=== PATIENT | female | born 1985 | race American Indian/Alaskan Native ===

== ENCOUNTER 2016-08-17 18:03 | Emergency (ER) | payer SELFPAY ==
[2016-08-17 18:49] VITALS: BP 142/99
[2016-08-17 21:13] LABS: Basophils % (Auto) 0.8 % (0.0-1.8); Eosinophils % (Auto) 1.5 % (0.0-4.3); Hemoglobin 12.2 gm/dl (10.1-14.3); Mean Corpuscular HGB Conc 34 % (30-34); Mean Corpuscular Hemoglobin 32 pg (28-32); Mean Corpuscular Volume 94 fl (79-97); Platelet Count 265 K/mm3 (140-440); Red Blood Count 3.84 M/mm3 (3.65-5.03); Red Cell Distribution Width 12.9 % (13.2-15.2); White Blood Count 7.3 K/mm3 (4.5-11.0)
[2016-08-17 21:29] LABS: Bilirubin,Urine NEG (Negative); Blood,Urine NEG (Negative); Ketones,Urine TR mg/dL (Negative); Leukocyte Esterase,Urine NEG (Negative); Mucus,Urine 2+ /HPF; Nitrite,Urine NEG (Negative); Protein,Urine <15 mg/dL mg/dL (Negative); WBC,Urine < 1.0 /HPF (0.0-6.0)
--- NOTE | 2016-08-19 20:27 | ED Elopement Review ---
ED Pt Elopement review - Results review Lab results: Laboratory Tests 08/17/16 08/17/16 08/17/16 20:48 20:48 20:48 WBC 7.3 RBC 3.84 Hgb 12.2 Hct 36.0 MCV 94 MCH 32 MCHC 34 RDW 12.9 L Plt Count 265 Lymph % (Auto) 42.2 H [place] % (Auto) 7.5 H Eos % (Auto) 1.5 Baso % (Auto) 0.8 Lymph # 3.1 [place] # 0.6 Eos # 0.1 Baso # 0.1 Seg Neutrophils % 48.0 Seg Neutrophils # 3.5 HCG, Qual Positive HCG, Quant 221.4 H Urine Color Urine Turbidity Urine pH Ur Specific [place] Urine Protein Urine Glucose (UA) Urine Ketones Urine Blood Urine Nitrite Urine Bilirubin Urine Urobilinogen Ur Leukocyte Esterase Urine WBC (Auto) Urine RBC (Auto) U Epithel Cells (Auto) Urine Mucus Urine HCG, Qual Blood Type Antibody Screen 08/17/16 08/17/16 20:50 21:00 WBC RBC Hgb Hct MCV MCH MCHC RDW Plt Count Lymph % (Auto) [place] % (Auto) Eos % (Auto) Baso % (Auto) Lymph # [place] # Eos # Baso # Seg Neutrophils % Seg Neutrophils # HCG, Qual HCG, Quant Urine Color Yellow Urine Turbidity Clear Urine pH 8.0 H Ur Specific [place] 1.026 Urine Protein <15 mg/dl Urine Glucose (UA) Neg Urine Ketones Tr Urine Blood Neg Urine Nitrite Neg Urine Bilirubin Neg Urine Urobilinogen 2.0 Ur Leukocyte Esterase Neg Urine WBC (Auto) < 1.0 Urine RBC (Auto) 8.0 U Epithel Cells (Auto) < 1.0 Urine Mucus 2+ Urine HCG, Qual Positive A Blood Type A POSITIVE Antibody Screen Negative - Call Back decision Pt Call Back Decision: Pt to F/U with PMD (patient needs to follow up with her primary care provider she has a positive test and reports vaginal bleeding. Still having vaginal bleeding and abdominal pain she needs to return to the emergency room for further evaluation)
== END 2016-08-18 02:40 | disposition left against medical advice (07) ==
LOC: ED 18:03
DX: N93.9 Abnormal uterine and vaginal bleeding, unspecified (principal); Z53.21 Procedure and treatment not carried out due to patient leaving prior to being seen by health care provider
CPT/HCPCS: 36415; 81001; 81025; 84702; 84703; 85025; 86850; 86900; 86901

== ENCOUNTER 2018-03-07 08:01 | Emergency (ER) | payer OTHER ==
[2018-03-07 08:09] VITALS: BP 146/106
[2018-03-07] MEDS ORDERED: TESSALON PERLES PO ONE (08:28)
[2018-03-07] MEDS ORDERED: MOTRIN PO ONE (08:28)
--- NOTE | 2018-03-07 09:04 | XRay Report ---
ROUTINE CHEST, TWO VIEWS: HISTORY: Cough. The trachea, heart, mediastinal contour, lung moreno and bony thorax are unremarkable. IMPRESSION: Unremarkable chest x-ray.
--- NOTE | 2018-03-07 09:19 | Emergency Department Report ---
Upper Respiratory HPI - HPI Chief Complaint: Upper Respiratory Infection Stated Complaint: COLD LIKE SYMPTOMS Time Seen by Provider: 03/07/18 08:23 Duration: 3 weeks URI Symptoms: Rhinorrhea: Yes, Sore Throat: No, Ear Pain: No, Cough: Yes, Shortness of Breath: No, Sick Contacts: No, Unable to Take Fluids: No, Urine Output Abnormal: No, Listless Behavior: No Other History: This is a 33-year-old female nontoxic, well nourished in appearance, no acute signs of distress presents to the ED with c/o of productive cough, body aches, rhinorrhea, nasal congestion x3 weeks. Patient describes productive cough as yellow mucus production. Patient also stated develops chest pain during coughing episode. Patient denies any chest pain radiation or shortness of breathe. Patient stated chest pain is reproducible upon palpation in the mid sternum area. Patient denies any sick contact. Patient denies any recent travels, long car, recent hospital stays. Patient denies any calf pain or calf tenderness. Patient curretnly when sitting down denies any chest pain. Patient denies any chest pain, short of breath, fever, chills, nausea, vomiting, hemoptysis, numbness, tingling, headache or stiff neck. Patient denies any allergies or significant past medical history. - Home Meds and Allergies Home Medications: Previous Rx's Medication Instructions Recorded Last Taken Type Ofloxacin 0.3% [Floxin Otic] 100 drops OT QID #1 bottle 03/08/16 Unknown Rx Azithromycin [Zithromax Z-LORY] 250 mg PO DAILY #6 tablet 03/07/18 Unknown Rx Benzonatate [Tessalon Perle] 100 mg PO Q8H PRN #20 capsule 03/07/18 Unknown Rx Ibuprofen [Motrin] 600 mg PO Q8H PRN #30 tablet 03/07/18 Unknown Rx Prednisone [predniSONE 10 mg 10 mg PO .TAPER #1 tab.ds.pk 03/07/18 Unknown Rx (6-Day Pack, 21 Tabs)] Allergies/Adverse Reactions: Allergies Allergy/AdvReac Type Severity Reaction Status Date / Time No Known Allergies Allergy Verified 03/07/18 08:06 ED Review of Systems ROS: Stated complaint: COLD LIKE SYMPTOMS Other details as noted in HPI Constitutional: denies: chills, fever Eyes: denies: eye pain, eye discharge, vision change ENT: denies: ear pain, throat pain Respiratory: cough. denies: shortness of breath, wheezing Cardiovascular: denies: chest pain, palpitations Endocrine: no symptoms reported Gastrointestinal: denies: abdominal pain, nausea, diarrhea Genitourinary: denies: urgency, dysuria, discharge Musculoskeletal: denies: back pain, joint swelling, arthralgia Skin: denies: rash, lesions Neurological: denies: headache, weakness, paresthesias Psychiatric: denies: anxiety, depression Hematological/Lymphatic: denies: easy bleeding, easy bruising ED Past Medical Hx - Past Medical History Hx Asthma: Yes - Surgical History Additional Surgical History: uterine ablation - Social History Smoking Status: Never Smoker Substance Use Type: None - Medications Home Medications: Home Medications Medication Instructions Recorded Confirmed Last Taken Type Ofloxacin 0.3% [Floxin Otic] 100 drops OT QID #1 bottle 03/08/16 Unknown Rx Azithromycin [Zithromax Z-LORY] 250 mg PO DAILY #6 tablet 03/07/18 Unknown Rx Benzonatate [Tessalon Perle] 100 mg PO Q8H PRN #20 capsule 03/07/18 Unknown Rx Ibuprofen [Motrin] 600 mg PO Q8H PRN #30 tablet 03/07/18 Unknown Rx Prednisone [predniSONE 10 mg 10 mg PO .TAPER #1 tab.ds.pk 03/07/18 Unknown Rx (6-Day Pack, 21 Tabs)] ED Bronchiolitis Physical Exam - Exam General: Vital signs noted. No distress. Alert and acting appropriately. Neurologic: Alert and oriented, no deficits. Musculoskeletal: Unremarkable. ED Bronchiolitis Tests - Testing Testing: CXR: Normal/Negative ED Physical Exam - General Limitations: No Limitations General appearance: alert, in no apparent distress - Head Head exam: Present: atraumatic, normocephalic - Eye Eye exam: Present: normal appearance Pupils: Present: normal accommodation - ENT ENT exam: Present: normal exam, mucous membranes moist - Neck Neck exam: Present: normal inspection, full ROM. Absent: tenderness, meningismus, lymphadenopathy - Respiratory Respiratory exam: Present: normal lung sounds bilaterally, chest wall tenderness (midsternum area). Absent: respiratory distress, wheezes, rales, rhonchi, stridor, accessory muscle use, decreased breath sounds, prolonged expiratory - Cardiovascular Cardiovascular Exam: Present: regular rate, normal rhythm, normal heart sounds. Absent: bradycardia, tachycardia, irregular rhythm, systolic murmur, diastolic murmur, rubs, gallop - GI/Abdominal GI/Abdominal exam: Present: soft, normal bowel sounds - Extremities Exam Extremities exam: Present: normal inspection, full ROM, normal capillary refill - Back Exam Back exam: Present: normal inspection, full ROM - Neurological Exam Neurological exam: Present: alert, oriented X3, normal gait - Psychiatric Psychiatric exam: Present: normal affect, normal mood - Skin Skin exam: Present: warm, dry, intact, normal color. Absent: rash ED Course Vital Signs 03/07/18 08:07 Temperature 98.9 F Pulse Rate 73 Respiratory 18 Rate Blood Pressure 146/106 O2 Sat by Pulse 100 Oximetry - Reevaluation(s) Reevaluation #1: 03/07/18 09:17 Patient is speaking in full sentences with no signs of distress noted. ED Medical Decision Making - EKG Data When compared to previous EKG there are: no significant change Interpretation: no acute changes, normal EKG, other (no st abnormalities) 03/07/18 09:[address] Muñoz - Medical Decision Making This is a 33-year-old female that presents with bronchitis. Patient is stable and was examined by me. Chest x-ray has been obtained and dictated by radiologist with normal exam. Patient is notified of x-ray results with no questions noted. Due to patient having symptoms of upper respiratory infection and worsening I will treat patient empirically with zpak. Patient was instructed to increase hydration, rest and take Motrin for fever episodes. Patient received motrin and tesslone perrls in the ED. Vitals stable. Patient is nonfebrile and normal heart rate. Patient was instructed Follow-up with a primary care doctor in 3-5 days or if symptoms worsen and continue return to emergency room as soon as possible. At time time of discharge, the patient does not seem toxic or ill in appearance. No acute signs of distress noted. Patient agrees to discharge treatment plan of care. No further questions noted by the patient. Critical care attestation.: If time is entered above; I have spent that time in minutes in the direct care of this critically ill patient, excluding procedure time. ED Disposition Clinical Impression: Bronchitis, Costochondritis Disposition: DC-01 TO HOME OR SELFCARE Is pt being admited?: No Does the pt Need Aspirin: No Condition: Stable Instructions: Acute Bronchitis (ED) Additional Instructions: Follow-up with a primary care doctor in 3-5 days or if symptoms worsen and continue return to emergency room as soon as possible. Prescriptions: Azithromycin [Zithromax Z-LORY] 250 mg PO DAILY #6 tablet Benzonatate [Tessalon Perle] 100 mg PO Q8H PRN #20 capsule PRN Reason: Cough Ibuprofen [Motrin] 600 mg PO Q8H PRN #30 tablet PRN Reason: Pain Prednisone [predniSONE 10 mg (6-Day Pack, 21 Tabs)] 10 mg PO .TAPER #1 tab.ds.pk Referrals: PRIMARY CARE, [Primary Care Provider] - 3-5 Days NATHALIE BARRIENTOS MD [Staff Physician] - 3-5 Days [facility] [Outside] - 3-5 Days [facility] [Outside] - 3-5 Days Forms: Work/School Release Form(ED)
== END 2018-03-07 09:31 | disposition home or self-care (01) ==
LOC: ED 08:01
DX: J40 Bronchitis, not specified as acute or chronic (principal); M94.0 Chondrocostal junction syndrome [Tietze]
CPT/HCPCS: 71046; 93005; 93010; 99283

== ENCOUNTER 2021-06-07 11:40 | Emergency (ER) | payer OTHER ==
--- NOTE | 2021-06-07 11:59 | Emergency Department Report ---
ED General Adult HPI - General Stated complaint: CHEST PAIN Time Seen by Provider: 06/07/21 11:56 - History of Present Illness Initial comments: Patient presents with a 3-week history of intermittent chest pain. This seems to be coming and going. This is substernally located. It does not radiate or migrate. Occasionally, the pain is worse with inspiration. This is not exertional. She states that walking around, moving, and exerting neither aggra vates or alleviates the pain. It is not associated with food although she states that she feels like she has indigestion and may be having problems with some acid reflux. She has taken [id number] analgesics without symptomatic improvement. There is no recent travel or trauma. She has had no cough or congestion. She does not feel short of breath. - Related Data Previous Rx's Medication Instructions Recorded Last Taken Type Ofloxacin 0.3% [Floxin 0.3% Otic] 100 drops OT QID #1 bottle 03/08/16 Unknown Rx Ibuprofen [Motrin] 600 mg PO Q8H PRN #30 tablet 03/07/18 Unknown Rx Pantoprazole [Protonix TAB] 20 mg PO QDAY #30 tablet. 06/07/21 Unknown Rx Sucralfate [Carafate] 1 gm PO ACHS #120 tablet 06/07/21 Unknown Rx Allergies Allergy/AdvReac Type Severity Reaction Status Date / Time No Known Allergies Allergy Verified 06/07/21 11:59 ED Review of Systems ROS: Stated complaint: CHEST PAIN Other details as noted in HPI Comment: All other systems reviewed and negative Constitutional: denies: fever Eyes: denies: eye pain ENT: denies: throat pain Respiratory: denies: cough Cardiovascular: as per HPI Endocrine: denies: unexplained weight loss Gastrointestinal: denies: abdominal pain Genitourinary: denies: dysuria Musculoskeletal: denies: back pain Skin: denies: rash Neurological: denies: headache Hematological/Lymphatic: denies: easy bruising ED Past Medical Hx - Past Medical History Hx Asthma: Yes - Surgical History Additional Surgical History: uterine ablation - Family History Family history: no significant - Social History Smoking Status: Never Smoker Substance Use Type: None - Medications Home Medications: Home Medications Medication Instructions Recorded Confirmed Last Taken Type Ofloxacin 0.3% [Floxin 0.3% Otic] 100 drops OT QID #1 bottle 03/08/16 Unknown Rx Ibuprofen [Motrin] 600 mg PO Q8H PRN #30 tablet 03/07/18 Unknown Rx Pantoprazole [Protonix TAB] 20 mg PO QDAY #30 tablet. 06/07/21 Unknown Rx Sucralfate [Carafate] 1 gm PO ACHS #120 tablet 06/07/21 Unknown Rx ED Physical Exam - General Limitations: No Limitations, Other (Pulse ox is noted and normal) General appearance: alert, in no apparent distress - Head Head exam: Present: atraumatic, normocephalic, normal inspection - Eye Eye exam: Present: normal appearance, EOMI. Absent: scleral icterus - ENT ENT exam: Present: normal exam, normal orophraynx - Neck Neck exam: Present: normal inspection. Absent: meningismus - Respiratory Respiratory exam: Present: normal lung sounds bilaterally. Absent: respiratory distress - Cardiovascular Cardiovascular Exam: Present: regular rate, normal rhythm - GI/Abdominal GI/Abdominal exam: Present: soft. Absent: tenderness - Extremities Exam Extremities exam: Present: normal capillary refill. Absent: calf tenderness - Back Exam Back exam: Absent: CVA tenderness (R), CVA tenderness (L) - Neurological Exam Neurological exam: Present: alert, oriented X3, CN II-XII intact, normal gait, reflexes normal. Absent: motor sensory deficit - Psychiatric Psychiatric exam: Present: normal affect, normal mood - Skin Skin exam: Present: warm, dry ED Course Vital Signs 06/07/21 12:03 Temperature 98.3 F Pulse Rate 71 Respiratory 18 Rate Blood Pressure 155/106 O2 Sat by Pulse 98 Oximetry - Reevaluation(s) Reevaluation #1: 06/07/21 11:59 labs ordered. Reevaluation #2: 06/07/21 14:16 Labs are still pending. ED Medical Decision Making - Lab Data Result diagrams: 06/07/21 13:05 Rhythm strip: Normal sinus rhythm without ectopy. Monitor observe 10 seconds. - EKG Data -: EKG Interpreted by Me - EKG Data 06/07/21 14:16 EKG shows normal sinus rhythm without ectopy. Intervals are normal including QRS and QT corrected. There is no ST elevation to suggest STEMI. There is no ST depression suggestive of ischemia. - Radiology Data Radiology results: image reviewed - Medical Decision Making Patient presented with chest pain that does not seem to be cardiac in nature. Is been present for weeks. It is not exertional. She has no change in EKG or troponin. I am not concerned for ACS. There was no pleuritic component on a consistent basis. She does not have any unilateral pain or swelling in the legs. I do not believe this represents PE from DVT. Patient did not have a pulse deficit to suggest aortic dissection. Clinically she did not have a cough or fever that would suggest pneumonia. She was treated symptomatically and r eferred for outpatient evaluation and follow-up. Critical Care Time: No Critical care attestation.: If time is entered above; I have spent that time in minutes in the direct care of this critically ill patient, excluding procedure time. ED Disposition Clinical Impression: Substernal chest pain Disposition: 01 HOME / SELF CARE / HOMELESS Is pt being admited?: No Condition: Stable Instructions: Nonspecific Chest Pain, Adult Additional Instructions: Have a bland diet. Drink plenty of water. Return for problems. Follow-up with your regular doctor for recheck. If you do not have a regular doctor, follow- up with the referral physician. Prescriptions: Sucralfate [Carafate] 1 gm PO ACHS #120 tablet Pantoprazole [Protonix TAB] 20 mg PO QDAY #30 tablet. Referrals: LEO HUFFMAN MD [Primary Care Provider] - 3-5 Days GABINO ROSE MD [Staff Physician] - 3-5 Days
[2021-06-07 12:04] VITALS: BP 155/106
--- NOTE | 2021-06-07 12:47 | XRay Report ---
CHEST 2 VIEWS INDICATION / CLINICAL INFORMATION: Chest pain. COMPARISON: 03/07/2018 FINDINGS: SUPPORT DEVICES: None. HEART / MEDIASTINUM: No significant abnormality. LUNGS / PLEURA: No significant pulmonary or pleural abnormality. No pneumothorax. ADDITIONAL FINDINGS: No significant additional findings. IMPRESSION: 1. No acute findings. Signer Name: Hugo Crews MD Signed: 06/07/2021 12:43 PM Workstation Name: [id number]
[2021-06-07] MEDS ORDERED: SUCRALFATE 1 GM TAB PO NR (13:00)
[2021-06-07 13:50] LABS: Hematocrit 36.8 % (30.3-42.9); Hemoglobin 12.3 gm/dl (10.1-14.3); Mean Corpuscular HGB Conc 33 % (30-34); Mean Corpuscular Volume 92 fl (79-97); Platelet Count 254 K/mm3 (140-440); Red Blood Count 3.99 M/mm3 (3.65-5.03); Red Cell Distribution Width 13.1 % (13.2-15.2)
[2021-06-07 14:57] LABS: Alanine Aminotransferase 14 units/L (7-56); Albumin 4.3 g/dL (3.9-5); BUN/Creatinine Ratio 21; Blood Urea Nitrogen 17 mg/dL (7-17); Calcium 9.5 mg/dL (8.4-10.2); Hemolysis Index 5
--- NOTE | 2021-06-08 11:13 | Electrocardiograph Report ---
[facility] Test Date: 2021-06-07 Test Time: 12:09:45 Pat Name: ALEXANDRE LOPEZ Department: Room: Gender: F Retention Specialist: AMANDA : 1985 Requested By: AMERICA CORONEL Order Number: [id number] Reading MD: Gui Fagan Measurements Intervals [place] Rate: 58 P: 2 WV: 160 QRS: 57 QRSD: 75 T: 37 QT: 405 QTc: 398 Interpretive Statements Sinus rhythm No previous ECG available for comparison Electronically Signed On 06-08-2021 11:13:12 EST by Gui Fagan
== END 2021-06-07 15:27 | disposition home or self-care (01) ==
LOC: ED 11:40
DX: R07.2 Precordial pain (principal); J45.909 Unspecified asthma, uncomplicated; Z79.899 Other long term (current) drug therapy
CPT/HCPCS: 36415; 71046; 80053; 83690; 84484; 85027; 93005; 99284